=== PATIENT | male | born 1990 | race Caucasian/White ===

== ENCOUNTER 2018-08-31 16:40 | Inpatient (IN) | payer SELFPAY ==
[2018-08-31] MEDS ORDERED: Lorazepam 2 MG/ML VIAL ONE ×2 (17:00→17:48)
[2018-08-31] MEDS ORDERED: Ondansetron PF 4 MG/2 ML Vial ONE (17:24)
[2018-08-31] MEDS ORDERED: Multivitamins, Adult 10 ML, Thiamine HCl 100 MG, Folic Acid 1 MG in Dextrose 5 %-0.45 %... IV SCH (17:45)
[2018-08-31 17:52] LABS: #Basophils 0.1 thou/uL (0.0-0.2); #Lymphocytes 2.1 thou/uL (1.20-3.40); #Monocytes 0.7 thou/uL (0.11-0.59); #Neutrophils 9.4 thou/uL (1.40-6.50); %Basophils 0.5 % (0.0-1.0); %Eosinophils 0.2 % (0.0-10.0); %Lymphocytes 17.1 % (21.0-51.0); %Monocytes 5.9 % (0.0-10.0); %Neutrophils 76.3 % (42.0-75.0); Hemoglobin 15.4 g/dL (14.0-18.0); Mean Corpuscular HGB CONC 34.2 g/dL (32.0-36.0); Mean Corpuscular Hemoglobin 31.5 pg (27.0-31.0); Mean Corpuscular Volume 92.1 fL (78.0-98.0); Mean Platelet Volume 6.2 fL (7.4-10.4); Platelet Count 365 thou/uL (130-400); RBC Distribution Width 12.1 % (11.5-14.5); White Blood Cell (WBC) Count 12.3 thou/uL (4.8-10.8)
[2018-08-31 18:17] LABS: ALT (SGPT) 81 U/L (8-55); AST (SGOT) 37 U/L (5-34); Acetaminophen Less than 6.0 mcg/mL (10.0-30.0); Albumin 3.9 g/dL (3.5-5.0); Alcohol 361 mg/dL (Less than 10); Alkaline Phosphatase 155 U/L (40-150); Anion Gap 16 mmol/L (10-20); BUN (Urea Nitrogen) 4 mg/dL (8.9-20.6); Bilirubin, Total 0.7 mg/dL (0.2-1.2); Calc. Creatinine Clearance 0 mL/min (70-130); Calcium 8.4 mg/dL (7.8-10.44); Carbon Dioxide 31 mmol/L (22-29); Chloride 101 mmol/L (98-107); Estimated GFR-MDRD Greater than 90; Globulin 2.7 g/dL (2.4-3.5); Glucose 116 mg/dL (70-105); Magnesium 1.8 mg/dL (1.6-2.6); Potassium 3.3 mmol/L (3.5-5.1); Protein, Total 6.6 g/dL (6.0-8.3); Salicylate Less than 8.0 mg/dL (15.0-30.0); Sodium 145 mmol/L (136-145)
[2018-08-31 18:52] LABS: Bilirubin Negative (Negative); Blood, Urine Small (Negative); Clarity CLEAR (Clear); Glucose, Urine (Dipstick) Negative (Negative); Leukocyte Small (Negative); Nitrite Negative (Negative); Protein, Urine (Dipstick) Negative (Neg-Trace); Specific Gravity, Urine 1.003 (1.002-1.036); Urobilinogen 0.2 mg/dL (0.2-1.0); pH, Urine 7.5 (5.0-9.0)
[2018-08-31 19:03] LABS: Amphetamine Detected (NotDetected); Barbiturates Screen Not Detected (NotDetected); Benzodiazepine Screen Not Detected (NotDetected); Cocaine Metabolite Screen Not Detected (NotDetected); Medtox Control Line Valid? VALID (VALID); Medtox Reader # READER 4; Methadone Not Detected (NotDetected); Methamphetamine Detected (NotDetected); Opiate Screen Detected (NotDetected); Oxycodone Screen Not Detected (NotDetected); Phencyclidine (PCP) Not Detected (NotDetected); THC/Cannabinoid Screen Not Detected (NotDetected); Tricyclic Screen Not Detected (NotDetected)
[2018-08-31 19:08] LABS: Bacteria/HPF None Seen HPF (None Seen); Hyaline Casts/LPF NONE SEEN LPF (0-3 Hyaline); RBC/HPF 0-3 HPF (0-3); Squamous Epithelial 0-3 HPF (0-3)
[2018-08-31] MEDS ORDERED: Sodium Chloride 0.9% 1,000 ML IV SCH (21:17)
[2018-08-31] MEDS ORDERED: Ondansetron ODT 4 MG TAB PO PRN (21:17)
[2018-08-31] MEDS ORDERED: Acetaminophen 325 MG TAB PO PRN (21:17)
[2018-08-31] MEDS ORDERED: Ondansetron PF 4 MG/2 ML Vial IVP PRN ×2 (21:17)
[2018-08-31] MEDS ORDERED: Ondansetron ODT 4 MG TAB SL PRN (21:17)
[2018-08-31] MEDS ORDERED: Acetaminophen 650 MG Suppository PR PRN (21:17)
[2018-08-31] MEDS ORDERED: Diazepam 5 MG TAB PO PRN (21:26)
[2018-08-31] MEDS ORDERED: Diazepam 5 MG TAB PO SCH (21:30)
[2018-08-31] MEDS ORDERED: Famotidine 20 MG TAB PO SCH (21:30)
[2018-08-31] MEDS ORDERED: Potassium Chloride 20 MEQ TAB PO SCH (21:30)
[2018-08-31] MEDS ORDERED: Thiamine HCl 200 MG/2 ML VIAL IM SCH (21:30)
[2018-08-31] MEDS ORDERED: Dextrose 5 % And 0.9 % NaCl 1,000 ML IV SCH (21:30)
[2018-08-31] MEDS: Lorazepam 2 MG/ML VIAL SLOW IVP PRN ×3 (21:52→23:43)
[2018-08-31 22:22] VITALS: BMI 19.5
[2018-09-01] MEDS: Lorazepam 2 MG/ML VIAL SLOW IVP PRN ×2 (01:06→03:01)
[2018-09-01] MEDS ORDERED: Diazepam 5 MG TAB PO PRN (04:00)
[2018-09-01 04:01] VITALS: TEMP 98.9
[2018-09-01 05:17] LABS: #Eosinphils 0.1 thou/uL (0.0-0.7); #Monocytes 0.8 thou/uL (0.11-0.59); #Neutrophils 6.5 thou/uL (1.40-6.50); %Basophils 0.3 % (0.0-1.0); %Eosinophils 1.3 % (0.0-10.0); %Lymphocytes 21.4 % (21.0-51.0); %Monocytes 8.1 % (0.0-10.0); Hemoglobin 12.8 g/dL (14.0-18.0); Mean Corpuscular HGB CONC 34.5 g/dL (32.0-36.0); Mean Corpuscular Hemoglobin 32.1 pg (27.0-31.0); Mean Platelet Volume 6.3 fL (7.4-10.4); Platelet Count 301 thou/uL (130-400); RBC Distribution Width 11.9 % (11.5-14.5); Red Blood Cell (RBC) Count 3.98 mill/uL (4.70-6.10); White Blood Cell (WBC) Count 9.4 thou/uL (4.8-10.8)
[2018-09-01 05:22] LABS: Anion Gap 13 mmol/L (10-20); BUN (Urea Nitrogen) 4 mg/dL (8.9-20.6); Calc. Creatinine Clearance 152 mL/min (70-130); Calcium 8.1 mg/dL (7.8-10.44); Carbon Dioxide 29 mmol/L (22-29); Chloride 105 mmol/L (98-107); Estimated GFR-MDRD Greater than 90; Glucose 93 mg/dL (70-105); Magnesium 1.8 mg/dL (1.6-2.6); Potassium 3.8 mmol/L (3.5-5.1); Sodium 143 mmol/L (136-145)
[2018-09-01] MEDS ORDERED: Folic Acid 1 MG TAB PO SCH (09:00)
[2018-09-01] MEDS ORDERED: Multivit, Therapeutic 1 TAB PO SCH (09:00)
[2018-09-01] MEDS ORDERED: Famotidine 20 MG TAB PO SCH (09:00)
[2018-09-01] MEDS ORDERED: Enoxaparin Sodium 40 MG/0.4 ML SYRINGE SC SCH (09:00)
[2018-09-01] MEDS ORDERED: Magnesium Oxide 400 MG TAB PO SCH (09:00)
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
[2018-09-01] MEDS ORDERED: Loratadine 10 MG TAB PO PRN (10:11)
[2018-09-01] MEDS ORDERED: Cepastat Lozenges 1 LOZ PO PRN (10:11)
[2018-09-01] MEDS ORDERED: hydrALAZINE 20 MG/ML VIAL SLOW IVP PRN (10:11)
[2018-09-01] MEDS ORDERED: Loperamide HCl 2 MG CAP PO PRN (10:11)
[2018-09-01] MEDS ORDERED: Sodium Chloride 0.65% Nasal 44 ML BOT EA NARE PRN (10:11)
[2018-09-01] MEDS ORDERED: Zolpidem Tartrate 5 MG TAB PO PRN (10:11)
[2018-09-01] MEDS ORDERED: HYDROcodone/Acetaminophen 5/325 mg Tablet PO PRN (10:11)
[2018-09-01] MEDS ORDERED: Diabetic Tussin 200 MG/10 ML UDCUP PO PRN (10:11)
[2018-09-01] MEDS ORDERED: Artificial Tears 18 DROP/0.9 ML EA EYE PRN (10:11)
[2018-09-01] MEDS ORDERED: Senokot S 8.6-50 MG TAB PO PRN (10:11)
[2018-09-01] MEDS ORDERED: Bisacodyl 10 MG SUPP PR PRN (10:11)
[2018-09-01] MEDS ORDERED: Eucerin (Mineral Oil/Petrolatum,White) 30 gm Jar TOP PRN (10:11)
--- NOTE | 2018-09-01 11:02 | PDOC.PN ---
- Subjective Encounter Start Date: 09/01/18 Encounter Start Time: 09:00 -: old records requested/rev Patient seen and examined. No new complaints. No overnight events - Objective Resuscitation Status - Order Detail: 08/31/18 20:29 Resuscitation Status Routine Resuscitation Status: FULL: Full Resuscitation MAR Reviewed: Yes Vital Signs & Weight: Vital Signs (12 hours) Temp Pulse Resp 09/01/18 04:00 98.9 F 09/01/18 01:05 124 H 19 08/31/18 23:49 97.9 F Weight Weight 160 lb 7.944 oz Most Recent Monitor Data Heart Rate from ECG 96 NIBP 112/52 NIBP BP-Mean 72 Respiration from ECG 18 SpO2 95 I&O: 08/31/18 09/01/18 09/02/18 06:59 06:59 06:59 Intake Total 2800 Balance 2800 Result Diagrams: 09/01/18 04:38 09/01/18 04:38 EKG Reviewed by me: Yes (nsr) Phys Exam - Physical Examination Constitutional: NAD HEENT: PERRLA, moist MMs, sclera anicteric, oral pharynx no lesions Neck: no JVD, supple Respiratory: no wheezing, no rales, no rhonchi Cardiovascular: RRR, no significant murmur, no rub Gastrointestinal: soft, non-tender, no distention, positive bowel sounds Musculoskeletal: no edema, pulses present Neurological: non-focal, normal sensation, moves all 4 limbs Lymphatic: no nodes Psychiatric: normal affect, A&O x 3 Skin: no rash, normal turgor Dx/Plan (1) Toxic metabolic encephalopathy Code(s): G92 - TOXIC ENCEPHALOPATHY Status: Acute (2) Abnormal LFTs Code(s): R94.5 - ABNORMAL RESULTS OF LIVER FUNCTION STUDIES Status: Acute (3) Alcohol intoxication Status: Acute (4) Hypokalemia Code(s): E87.6 - HYPOKALEMIA Status: Acute (5) Polysubstance abuse Code(s): F19.10 - OTHER PSYCHOACTIVE SUBSTANCE ABUSE, UNCOMPLICATED Status: Acute - Plan cont current plan of care * transfer to medical * counselled to avoid polysubstance abuse * check labs with hepatitis profile tomorrow * medication reviewed as below * symptomatic treatment * expecting discharge tomorrow if stable. Review of Systems - Review of Systems ENT: negative: Ear Pain, Ear Discharge, Nose Pain, Nose Discharge, Nose Congestion, Mouth Pain, Mouth Swelling, Throat Pain, Throat Swelling, Other Respiratory: Cough. negative: Dry, Shortness of Breath, Hemoptysis, SOB with Excertion, Pleuritic Pain, Sputum, Wheezing Cardiovascular: negative: chest pain, palpitations, orthopnea, paroxysmal nocturnal dyspnea, edema, light headedness, other Gastrointestinal: negative: Nausea, Vomiting, Abdominal Pain, Diarrhea, Constipation, Melena, Hematochezia, Other Genitourinary: negative: Dysuria, Frequency, Incontinence, Hematuria, Retention , Other Musculoskeletal: negative: Neck Pain, Shoulder Pain, Arm Pain, Back Pain, Hand Pain, Leg Pain, Foot Pain, Other - Medications/Allergies Allergies/Adverse Reactions: Allergies Allergy/AdvReac Type Severity Reaction Status Date / Time No Known Allergies Allergy Unverified 08/31/18 17:30 Medications: Current Medications Acetaminophen (Tylenol) 650 mg PO Q4H PRN PRN Reason: Headache/Fever/Mild Pain (1-3) Hydrocodone Bitart/Acetaminophen (Graff 5/325) 1 tab PO Q4H PRN PRN Reason: Moderate Pain (4-6) Artificial Tears (Tears Naturale) 2 drop EA EYE PRN PRN PRN Reason: Dry Eyes Bisacodyl (Dulcolax) 10 mg PA DAILYPRN PRN PRN Reason: Constipation Diazepam (Valium) 5 mg PO Q4H PRN PRN Reason: FOR ASE 10 OR GREATER Enoxaparin Sodium (Lovenox) 40 mg SC 0900 [facility] Famotidine (Pepcid) 20 mg PO BID [facility] Folic Acid (Folvite) 1 mg PO DAILY [facility] Guaifenesin (Robitussin Sf) 200 mg PO Q4H PRN PRN Reason: Cough Hydralazine HCl (Apresoline) 10 mg SLOW IVP Q4H PRN PRN Reason: SBP > 180 and HR < 70 Sodium Chloride (Normal Saline 0.9%) 1,000 mls @ 75 mls/hr IV .[id number] [facility] Last Admin: 08/31/18 21:37 Dose: 1,000 mls Loperamide HCl (Imodium) 2 mg PO PRN PRN PRN Reason: Diarrhea/Loose Stools Loratadine (Claritin) 10 mg PO DAILYPRN PRN PRN Reason: Sinus Symptoms Lorazepam (Ativan) 2 mg SLOW IVP Q15MIN PRN PRN Reason: Seizures Last Admin: 08/31/18 23:43 Dose: 2 mg Magnesium Oxide (Magnesium Oxide) 400 mg PO DAILY [place] Mineral Oil/White Petrolatum (Eucerin Cream) 0 gm TOP BIDPRN PRN PRN Reason: Dry Skin Multivitamins (Theragran) 1 tab PO DAILY [facility] Ondansetron HCl (Zofran Odt) 4 mg PO Q6H PRN PRN Reason: Nausea/Vomiting Ondansetron HCl (Zofran) 4 mg IVP Q6H PRN PRN Reason: Nausea/Vomiting Last Admin: 09/01/18 01:39 Dose: 4 mg Senna/Docusate Sodium (Senokot S) 2 tab PO BID PRN PRN Reason: Constipation Sodium Chloride (Flush - Normal Saline) 10 ml IVF Q12HR [place] Sodium Chloride (Flush - Normal Saline) 10 ml IVF PRN PRN PRN Reason: Saline Flush Sodium Chloride ([place] Nasal [place] 0.65%) 0 ml EA NARE QIDPRN PRN PRN Reason: Nasal Congestion Thiamine HCl (Thiamine) 100 mg PO DAILY [facility] Throat Lozenges (Cepastat Lozenges) 1 doug PO Q2H PRN PRN Reason: Sore Throat Zolpidem Tartrate (Ambien) 5 mg PO HSPRN PRN PRN Reason: Insomnia
--- NOTE | 2018-09-02 13:13 | DIS ---
DATE OF ADMISSION: 08/31/2018 DATE OF DISCHARGE: 09/01/2018 PRIMARY CARE PHYSICIAN: [facility] Call admission. DISCHARGE DISPOSITION: Home against medical advice. PRIMARY DISCHARGE DIAGNOSES: 1. Alcohol intoxication. 2. Polysubstance abuse. 3. Toxic metabolic encephalopathy. 4. Hypokalemia. 5. Abnormal liver function test. SECONDARY DISCHARGE DIAGNOSES: 1. Polysubstance abuse. 2. Alcohol abuse. PRIMARY PROCEDURE/OPERATION: None. RADIOLOGICAL INVESTIGATION: None. SIGNIFICANT LABORATORY DATA: Hemoglobin 12.8, WBC 9.4, platelets 301. Sodium 143, creatinine 0.73, AST 37, ALT 81, alkaline phosphatase 155. TSH 0.61. Urinalysis unremarkable. Urine drug screen positive for amphetamine and methamphetamine. Alcohol level 361. DISCHARGE MEDICATIONS: The patient left against medical advice and he absconded from the hospital without any notification. CONTRAINDICATION: None. CODE STATUS: Full code. INPATIENT IMAGERY ANALYST: Pulmonary group saw this patient while the patient was in IMCU. TEST RESULTS PENDING ON DISCHARGE: None. ALLERGIES: NO KNOWN DRUG ALLERGIES. DISCHARGE PLAN: The patient should follow up with the primary care physician. HOSPITAL COURSE: The patient was admitted by Dr. Ministerio Kerr. Please see his H and P for further details. On admission, the patient was encephalopathic which was related with his alcohol intoxication as well as polysubstance abuse with amphetamine and methamphetamine, which came back positive in the urine drug screen. He was closely observed in IMCU overnight and next day the patient was transferred to medical floor. When he was transferred to medical floor, the patient absconded without any notification. The patient was seen and examined. Please see my progress note from that day. Job ID: [id number]
== END 2018-09-01 17:00 | disposition left against medical advice (07) | DRG 93 ==
LOC: ERS 16:40 → IMCU/EMU 21:06 → T4-A 09-01 11:51
PROVIDERS: ADMIT Emergency Medicine; ATTEND Emergency Medicine
DX: G92 Toxic encephalopathy (principal); F41.9 Anxiety disorder, unspecified; F10.129 Alcohol abuse with intoxication, unspecified; F15.10 Other stimulant abuse, uncomplicated; E87.6 Hypokalemia; R94.5 Abnormal results of liver function studies; F19.10 Other psychoactive substance abuse, uncomplicated
CPT/HCPCS: 36415; 80048; 80053; 80306; 80307; 81003; 81015; 83735; 84443; 85025; 93005; 96361; 96365; 96366; 96375; J1650; J2060; J2405; J3411; J3475; J7042; J7050